=== PATIENT | female | born 1995 | race Caucasian/White ===

== ENCOUNTER 2020-11-01 06:18 | Inpatient (IN) ==
[2020-11-01] MEDS ORDERED: Famotidine 20 MG/2 ML VIAL IVP PRN (06:22)
[2020-11-01] MEDS ORDERED: Azithromycin 500 MG in 0.9 % Sodium Chloride 250 ML IVPB ONE (06:22)
[2020-11-01] MEDS ORDERED: Metoclopramide 10 MG/2 ML VIAL IVP PRN ×2 (06:22→12:57)
[2020-11-01] MEDS ORDERED: Naloxone 0.4 MG/ML INJ IVP PRN ×2 (06:22→12:57)
[2020-11-01] MEDS ORDERED: Ringers Solution, Lactated 1,000 ML IVC ONE (06:25)
[2020-11-01] MEDS ORDERED: Ringers Solution, Lactated 1,000 ML IVC SCH (06:30)
[2020-11-01 07:14] LABS: Basophils % 0.2 %; Eosinophils # 0.1 K/mcL (0.0-0.6); Eosinophils % 0.9 %; Hematocrit 36.7 % (35.3-44.9); Hemoglobin 11.9 g/dL (11.5-15.4); Immature Granulocytes % 1.1 % (0-4); Lymphocytes % 28.3 %; Mean Corpuscular HGB Conc 32.4 g/dL (31.6-35.5); Mean Corpuscular Hemoglobin 31.4 pg (28.0-33.3); Mean Corpuscular Volume 96.8 fL (83.0-100.0); Mean Platelet Volume 11.3 fL (9.4-12.4); Monocytes # 0.9 K/mcL (0.0-1.3); Monocytes % 8.3 %; Neutrophils # 6.6 K/mcL (1.6-8.9); Platelet Count 145 K/mcL (140-400); Red Blood Count 3.79 M/mcL (3.82-4.97); Red Cell Distribution Width 14.6 % (11.5-14.5); Segmented Neutrophils % 61.2 %; White Blood Count 10.8 K/mcL (4.3-11.1)
[2020-11-01 07:44] LABS: Hepatitis B Surface Antigen Nonreactive (Nonreactive)
[2020-11-01] MEDS ORDERED: Oxytocin 20 units/ LR 1000 mL 40 UNIT/2,000 ML BAG IVC ONE (07:47)
[2020-11-01] MEDS ORDERED: CeFAZolin 2,000 MG/50 ML BAG IVPB ONE (07:48)
[2020-11-01] MEDS ORDERED: *HR* FentaNYL (PF) 100 MCG/2 ML VIAL ONE (07:50)
[2020-11-01] MEDS ORDERED: *HR* Morphine Sulfate/PF 10 MG/10 ML AMPUL ONE (07:50)
[2020-11-01 07:55] LABS: Influenza A PCR Negative (Negative); Influenza B PCR Negative (Negative); Resp. Syncytial Virus PCR Negative (Negative)
[2020-11-01] MEDS ORDERED: Ondansetron 4 MG/2 ML VIAL ONE (07:59)
[2020-11-01 08:07] LABS: SARS-CoV-2 by PCR (In House) Negative (Negative)
[2020-11-01 08:13] LABS: HIV-1&2 Antibody & p24 Ag Nonreactive (Nonreactive)
[2020-11-01] MEDS ORDERED: *HR* Phenylephrine 10 MG/ML VIAL ONE (08:18)
[2020-11-01] MEDS ORDERED: Ketorolac 30 MG/ML VIAL ONE (08:36)
[2020-11-01] MEDS ORDERED: Acetaminophen IV 1,000 MG/100 ML BAG IVPB ONE (08:37)
[2020-11-01 09:18] LABS: Amphetamine Screen,Urine Negative ng/mL (Cutoff=1000); Barbiturate Screen,Urine Negative ng/mL (Cutoff=200); Benzodiazepines Screen,Urine Negative ng/mL (Cutoff=200); Cannabinoid Screen,Urine Negative ng/mL (Cutoff = 50); Cocaine Screen,Urine Negative ng/mL (Cutoff= 300); Opiate Screen,Urine Negative ng/mL (Cutoff=300); Phencyclidine Screen,Urine Negative ng/mL (Cutoff=25)
[2020-11-01 11:50] LABS: Rubella IgG Antibody Negative (POSITIVE); Varicella Zoster IgG Antibody Negative
[2020-11-01] MEDS ORDERED: Methylergonovine 0.2 MG/ML AMPUL IM ONE (12:05)
[2020-11-01] MEDS ORDERED: Ondansetron 4 MG/2 ML VIAL IVP PRN (12:57)
[2020-11-01] MEDS ORDERED: Sennosides 8.6 MG TABLET PO PRN (12:57)
[2020-11-01] MEDS ORDERED: Oxytocin 20 units/ LR 1000 mL 20 UNIT/1,000 ML BAG IVC SCH (12:57)
[2020-11-01] MEDS ORDERED: 0.9 % Sodium Chloride 1,000 ML IVC SCH (12:57)
[2020-11-01] MEDS ORDERED: Acetaminophen 325 MG TABLET PO PRN (12:57)
[2020-11-01] MEDS ORDERED: Simethicone 80 MG TAB.CHEW PO PRN (12:57)
[2020-11-01] MEDS: *HR* OxyCODONE Immed Rel 5 MG TABLET PO PRN (16:48)
[2020-11-01] MEDS: Ibuprofen 600 MG TABLET PO PRN (21:11)
[2020-11-02] MEDS: Ibuprofen 600 MG TABLET PO PRN ×3 (03:29→19:46)
[2020-11-02 03:47] LABS: Basophils % 0.2 %; Eosinophils # 0.1 K/mcL (0.0-0.6); Eosinophils % 0.5 %; Hematocrit 29.2 % (35.3-44.9); Immature Granulocytes % 0.5 % (0-4); Lymphocytes # 1.8 K/mcL (0.6-4.6); Lymphocytes % 13.6 %; Mean Corpuscular HGB Conc 33.2 g/dL (31.6-35.5); Mean Corpuscular Hemoglobin 31.9 pg (28.0-33.3); Mean Corpuscular Volume 96.1 fL (83.0-100.0); Monocytes # 1.2 K/mcL (0.0-1.3); Neutrophils # 9.9 K/mcL (1.6-8.9); Platelet Count 125 K/mcL (140-400); Red Blood Count 3.04 M/mcL (3.82-4.97); Red Cell Distribution Width 14.5 % (11.5-14.5); Segmented Neutrophils % 76.2 %
[2020-11-02 03:48] LABS: Hemoglobin 9.7 g/dL (11.5-15.4)
[2020-11-02] MEDS: *HR* OxyCODONE Immed Rel 5 MG TABLET PO PRN ×2 (07:08→14:51)
[2020-11-02] MEDS: Prenatal Vit/FA 1 EACH TABLET PO SCH (08:17)
[2020-11-03] MEDS: Ibuprofen 600 MG TABLET PO PRN ×2 (03:59→09:43)
[2020-11-03] MEDS: Prenatal Vit/FA 1 EACH TABLET PO SCH (09:44)
[2020-11-03] MEDS: *HR* OxyCODONE Immed Rel 5 MG TABLET PO PRN (12:42)
[2020-11-03 13:16] VITALS: BP 98/55
== END 2020-11-03 12:47 | disposition home or self-care (01) | DRG 788 ==
LOC: SAMDAY 06:18 → 1NENULAB 06:33 → 1NENUOBS 12:19
PROVIDERS: ADMIT Student in an Organized Health Care Education/Training Program; ATTEND Student in an Organized Health Care Education/Training Program